=== PATIENT | male | born 2000 | race Caucasian/White ===

== ENCOUNTER 2023-04-19 21:17 | Emergency (ER) | payer OTHER, SELFPAY ==
[2023-04-19 21:26] VITALS: BP 135/79; PULSE 78; RESP 18; TEMP 36.1; O2SAT 97; BMI 28.2
--- NOTE | 2023-04-20 00:06 | ED_ITS ---
HPI - Wound/Laceration General Chief Complaint: Wound/Laceration Stated Complaint: Laceration left hand palm Time Seen by Provider: 04/20/23 00:06 Source: patient, RN notes reviewed and old records reviewed Mode of arrival: ambulatory History of Present Illness HPI narrative: 22-year-old male with no significant past medical history presenting to the ED complaining laceration to left hand palmar aspect s/p slip and fall & cutting hand open on rock around 19:00. Denies injury to other area, head trauma or LOC. Tetanus unknown. Denies numbness, tingling, weakness. Admits clean with saline & iodine [employer] Onset (ago): hour(s) Related Data Previous Rx's Medication Instructions Recorded bacitracin 500 unit/gram topical 1 appl topical BID #30 grams 04/20/23 ointment cephalexin 500 mg capsule 500 mg PO QID 7 days #28 caps 04/20/23 Allergies Allergy/AdvReac Type Severity Reaction Status Date / Time Penicillins Allergy Unknown Verified 04/19/23 21:25 Review of Systems Review of Systems: Constitutional: No Fever, No Chills ENT/Mouth: No Ear Pain, No Nasal Congestion, No Swallowing Difficulty Cardiovascular: No Chest Pain, No SOB Respiratory: No Cough, No Sputum, No Wheezing Gastrointestinal: No Nausea, No Abdominal pain Genitourinary: No Dysuria, No Urinary Frequency, No Hematuria Musculoskeletal: No joint pain, No Myalgias, No Joint Swelling Skin: + Skin Lesions, No rash Neuro: No Weakness, No Numbness, No Paresthesias Yes all other systems are reviewed and are negative Constitutional: Constitutional: Reports as per [facility] Past Medical History Attestation statement: The following information was validated with the patient. Source: old records reviewed Social History Social History Alcohol intake: former Smoked in Last 30 Days: No Use of substances other than those prescribed or required for medical reasons: No Advance Directives: No Advance Directives Information Provided: No Physical Exam Vital Signs: Vital Signs: Last Vital Signs Temp 98.6 F 04/20/23 00:13 Pulse 87 04/20/23 00:13 Resp 16 04/20/23 00:13 BP 144/89 H 04/20/23 00:13 Pulse Ox 100 04/20/23 00:13 O2 Del Method Room Air 04/20/23 00:13 BMI result Body Mass Index 28.2 Const: General: cooperative, healthy appearing and no acute distress Orientation/consciousness: patient oriented x3 Limitations: no limitations HEENT: Head: Yes normal to inspection and Yes atraumatic Ears: hearing grossly normal bilaterally General nose exam: Normal external nose present Face and sinus: Yes normal facial exam Eyes: General: appearance normal, both eyes and all related structures EOM: EOMs intact bilaterally Neck: Neck: Yes normal visual inspection and Yes no meningeal signs Resp: Effort & Inspection: normal respiratory effort and no respiratory distress Cardio: Rate: regular rate Peripheral pulses: radial pulses present and ulnar radial pulses present Skin: Rashes: no rashes Neuro: General: patient oriented x3, tone normal and no meningeal signs Gait exam (Neuro): Normal gait present Extrem: Other: Left palm with 4 cm superficial linear laceration noted to the thenar eminence, subcutaneous tissue noted, underlying structures appear intact. Appears contaminated. No surrounding erythema, no active bleeding, no fluctuance/induration, mildly tender. Full range of motion to digits and wrist intact. Neurovascular intact Course Course Course Narrative: -laceration repaired by ANTHONY with this writers supervision. Results discussed with patient including worrisome signs and symptoms and strict return precautions, and when to return to the emergency department. They verbalized understanding and feel safe for discharge at this time. Medications Administered Discontinued Medications Generic Name Dose Route Start Last Admin Trade Name Freq PRN Reason Stop Dose Admin Bacitracin 1 appl 04/20/23 01:26 04/20/23 01:42 Bacitracin Oint 0.9 Gm Packet TOPICAL 04/20/23 01:27 1 appl ONCE ONE Administration Protocol Diphtheria/Tetanus/Acell Pertussis 0.5 ml 04/20/23 00:17 04/20/23 00:28 Diphth,Pertus(Acell),Tet Adult 0.5 Ml Syringe IM 04/20/23 00:18 0.5 ml .ONCE ONE Administration Lidocaine HCl 5 ml 04/20/23 00:16 04/20/23 00:29 Lidocaine Hcl 1 % Mpf 5 Ml Vial INFILTRATI 04/20/23 00:17 5 ml ONCE ONE Administration Medical Decision Making Medical Decision Making MDM Narrative: 22-year-old male with no significant past medical history presenting to the ED complaining laceration to left hand palmar aspect s/p slip and fall & cutting hand open on rock around 19:00. On exam vital signs stable, NAD, nontoxic appearing, physical exam as noted above. Concern for laceration, no evidence of cellulitis/infection. Low suspicion for fracture or underlying tendon/ligament or nerve injury Plan: Tdap, repair laceration Please refer to course for remaining clinical decision making, interpretation of labs/imaging results, and discussions with consultants and/or family members. Differential Diagnosis Differential Diagnoses: The differential diagnosis associated with the present ation includes As above Lab Data MDM Lab Attestation statement: I reviewed the patient's lab results. External Record Review External record reviewed: Inpatient record, Office record, Outpatient record, Prior outpatient labs, Prior outpatient radiology, Primary care record and Outside ED record Tests considered The following testing was considered but not selected: As above Prescription Management I considered prescription management with: Pain Medication and Antibiotic Procedures Laceration Laceration 1: Site: hand Side (If applicable): left Size (cm): 3 Description: linear Depth: simple, single layer Local Anesthetic: lidocaine 1% Amount of anesthesia used (mL): 4 Pre-repair: wound explored, irrigated extensively and deep structures intact Skin layer closed with: nylon Size (cm): 4-0 Number of sutures: 7 Technique: simple, interrupted Discharge Plan Discharge Clinical Impression: Laceration Patient Disposition: Home, Self-Care Instructions: Laceration (DC) Additional Instructions: Your wounds were repaired today in the emergency department. Keep dry and clean. Keflex as an antibiotic please take as prescribed. Use topical bacitracin You need to return to any emergency department, urgent care, or your PCPs office in 7-10 days for suture removal Apply bacitracin and or Neosporin daily Once sutures are removed apply anti scar cream like Mederma If area begins look infected, is red, there is drainage, streaking, or you have fever please return to the emergency department Prescriptions: New bacitracin 500 unit/gram ointment 1 appl topical BID Qty: 30 0RF cephalexin 500 mg capsule 500 mg PO QID 7 Days Qty: 28 0RF Referrals: Curtis Remy MD [Emergency Provider] - 1 week (7-10 days for suture removal) Stand Alone Forms: Work/School Release Interventions: ED Discharge Assessment Last Done: 07/26/23 01:48 Discharge Date/Time: 04/20/23 01:49
[2023-04-20 00:13] VITALS: BP 144/89; PULSE 87; RESP 16; TEMP 37; O2SAT 100
[2023-04-20] MEDS: Diphth,Pertus(ACell),Tet Adult 0.5 ML SYRINGE IM (00:28)
[2023-04-20] MEDS: Lidocaine HCl 1 % MPF 5 ML VIAL INFILTRATI (00:29)
--- NOTE | 2023-04-20 00:32 | PC.NURSE ---
pt a&o, no sob or chest pain, medicated per Mar, provider into assess pt. Will continue to monitor.
[2023-04-20] MEDS: Bacitracin Oint 0.9 GM PACKET 1 APPL TOPICAL (01:42)
--- NOTE | 2023-04-20 01:47 | PC.NURSE ---
medicated per Mar, laceration site cleaned and wrapped, reviewed discharge instruction with pt, pt verbalized understanding.
== END 2023-04-20 01:49 | disposition home or self-care (01) ==
PROVIDERS: Emergency Provider Internal Medicine
DX: S61.412A Laceration without foreign body of left hand, initial encounter (principal); W01.198A Fall on same level from slipping, tripping and stumbling with subsequent striking against other object, initial encounter; Y93.9 Activity, unspecified; Y92.9 Unspecified place or not applicable; Y99.9 Unspecified external cause status
CPT/HCPCS: 12042; 90471; 90715; 99284